=== PATIENT | female | born 1985 | race Caucasian/White ===

== ENCOUNTER → 2017-10-31 | Outpatient (CLI) | payer MEDICAID ==
[~2017-10-31] MED LIST: DULE200A INH; EPIN1INJ17 IM; FLUT50SP EACH NARE; GEOD80CA PO; META48.53 PO; ONDA4TAB7 SL; PANT40TA3 PO; PEGPOW2 PO; VIST50CA PO
--- NOTE | 2017-10-31 14:33 | RADRPT ---
EXAM DATE/TIME: 10/31/2017 13:17 [place] COMPARISON: No previous studies available for comparison. INDICATIONS : Evaluate shunt. Mid chest lump for 1 month. MEDICAL HISTORY : Hydrocephalus. SURGICAL HISTORY : Cholecystectomy. [employer] shunt. ENCOUNTER: Initial ACUITY: 1 month PAIN SCORE: 4/10 LOCATION: Mid chest. FINDINGS: Radiograph of the skull, neck, chest and abdomen performed to evaluate shunt patency. The shunt cath eter is seen entering the right frontal region with its tip in the region of the body of the right la teral ventricle. The catheter is continuous in its course terminating in the midabdomen. Significant coiling of the ca theter at its terminus is identified in the abdomen.. The visualized heart, lungs and abdominal structures are intact. CONCLUSION: Significant coiling of the intraperitoneal segment of the [employer] shunt which otherwise ap pears intact. Lc Han MD on October 31, 2017 at 14:28 Board Certified Radiologist. This report was verified electronically.
== END ==
LOC: HRAD 12:53 → MERGE 13:00
PROVIDERS: ATTEND Neurological Surgery
DX: G91.9 Hydrocephalus, unspecified (principal)
CPT/HCPCS: 70250; 71010; 72040; 74000